=== PATIENT | male | born 1985 | race Caucasian/White ===

== ENCOUNTER 2017-03-15 16:25 | Emergency (ER) | payer BC ==
[2017-03-15] MEDS ORDERED: ASPIRIN 81 MG CHEW PO STA (17:04)
--- NOTE | 2017-03-15 17:07 | ED ---
General Adult HPI - General Chief complaint: Chest Pain Stated complaint: Chest Pain Time Seen by Provider: 03/15/17 16:57 Source: patient, RN notes reviewed Mode of arrival: ambulatory Limitations: no limitations - History of Present Illness Initial comments: Patient's a 31-year-old male who presents emergency room today with a chief complaint of chest pain that began approximately 2 hours ago. He does admit that he was at work when he began feeling some dull chest pain both left and right side that seemed to radiate Center. Patient does admit that it lasted approximately 10 minutes. Patient states that pain then improved. States approximately 20 minutes later pain return. States he feels more of a sharp type pain radiating on the right side of his chest. Patient denies any other associated symptoms. States pain has been coming and going. He states at this time he is currently pain-free but while in the waiting room had 3 episodes of this chest pain. Patient states never had pain like this in the past. He does admit to a family history of cardiac disease. States father has had bypass surgery. States grandfather had heart attack at age 45. Patient denies any recent fever, chills, shortness of breath, back pain, abdominal pain, nausea or vomiting, numbness or tingling, dysuria or hematuria, constipation or diarrhea, headaches or visual changes, or any other complaints. - Related Data Home Medications Medication Instructions Recorded Confirmed Colchicine [Colcrys] 0.6 mg PO DIRECTED PRN 01/03/16 03/15/17 Hydrochlorothiazide 25 mg PO DAILY 01/03/16 03/15/17 Indomethacin [Indocin] 50 mg PO BID PRN 01/03/16 03/15/17 Fluticasone/Salmeterol [Advair 1 inhalation PO RT-BID 03/15/17 03/15/17 250-50 Diskus] Allergies Allergy/AdvReac Type Severity Reaction Status Date / Time morphine Allergy Rash/Hives Verified 03/15/17 17:22 Review of Systems ROS Statement: Those systems with pertinent positive or pertinent negative responses have been documented in the HPI. ROS Other: All systems not noted in ROS Statement are negative. 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), History of Any Multi-Drug Resistant Organisms: None Reported Past Surgical History: Hernia Repair Additional Past Surgical History / Comment(s): left inguinal hernia x2 Past Anesthesia/Blood Transfusion Reactions: No Reported Reaction Past Psychological History: No Psychological Hx Reported Smoking Status: Never smoker Past Alcohol Use History: None Reported Past Drug Use History: None Reported - Past Family History Mother Family Medical History: No Reported History General Exam - General Exam Comments Initial Comments: General: The patient is awake and alert, in no distress, and does not appear acutely ill. Eye: Pupils are equal, round and reactive to light, extra-ocular movements are intact. No nystagmus. There is normal conjunctiva bilaterally. No signs of icterus. Ears, nose, mouth and throat: There are moist mucous membranes and no oral lesions. Neck: The neck is supple, there is no tenderness or JVD. Cardiovascular: There is a regular rate and rhythm. No murmur, rub or gallop is appreciated. Respiratory: Lungs are clear to auscultation, respirations are non-labored, breath sounds are equal. No wheezes, stridor, rales, or rhonchi. Gastrointestinal: Soft, non-distended, non-tender abdomen without masses or organomegaly noted. There is no rebound or guarding present. No CVA tenderness. Bowel sounds are unremarkable. Musculoskeletal: Normal ROM, no tenderness. Strength 5/5. Sensation intact. Pulses equal bilaterally 2+. Neurological: A&O x 3. CN II-XII intact, There are no obvious motor or sensory deficits. Coordination appears grossly intact. Speech is normal. Skin: Skin is warm and dry and no rashes or lesions are noted. Psychiatric: Cooperative, appropriate mood & affect, normal judgment. Limitations: no limitations Course Vital Signs 03/15/17 03/15/17 03/15/17 16:26 17:22 18:08 Temperature 97.8 F Pulse Rate 74 89 69 Respiratory 18 18 16 Rate Blood Pressure 141/93 140/95 138/92 O2 Sat by Pulse 98 99 99 Oximetry 03/15/17 03/15/17 19:00 19:45 Temperature 98 F Pulse Rate 70 67 Respiratory 18 16 Rate Blood Pressure 141/90 147/92 O2 Sat by Pulse 99 98 Oximetry EKG Findings - EKG Comments: EKG Findings:: EKG performed at 1635: A 12-lead EKG was performed and interpreted by me as showing the following: Rate is 71, and rhythm is normal sinus. There are normal QRS complexes and normal R-wave progression. ST segments have no elevation or depression, and NV segments appear normal. Medical Decision Making - Medical Decision Making Patient reexamined at this time shows no signs of distress. Repeat troponin was negative. Patient's EKG shows normal sinus rhythm. States she's not had any chest pain in the last 2 hours that he's been here. States is resting comfortably at this time. Case was discussed with attending physician . Patient will be discharged home advised to follow up with family doctor tomorrow. Advised no physical activity until follow-up appointment. Advised return if any symptoms increase or worsen or for any other concerns. - Lab Data Result diagrams: 03/15/17 17:20 03/15/17 17:20 Lab Results 03/15/17 03/15/17 03/15/17 Range/Units 17:20 17:20 17:20 WBC 9.1 (3.8-10.6) k/uL RBC 6.09 H (4.30-5.90) m/uL Hgb 16.4 (13.0-17.5) gm/dL Hct 49.6 (39.0-53.0) % MCV 81.4 (80.0-100.0) fL MCH 27.0 (25.0-35.0) pg MCHC 33.1 (31.0-37.0) g/dL RDW 13.3 (11.5-15.5) % Plt Count 346 (150-450) k/uL Neutrophils % 63 % Lymphocytes % 24 % Monocytes % 8 % Eosinophils % 2 % Basophils % 1 % Neutrophils # 5.8 (1.3-7.7) k/uL Lymphocytes # 2.2 (1.0-4.8) k/uL Monocytes # 0.7 (0-1.0) k/uL Eosinophils # 0.2 (0-0.7) k/uL Basophils # 0.1 (0-0.2) k/uL PT (9.0-12.0) sec INR (<1.1) APTT (22.0-30.0) sec D-Dimer (<0.60) mg/L FEU Sodium 137 (137-145) mmol/L Potassium 3.5 (3.5-5.1) mmol/L Chloride 98 (98-107) mmol/L Carbon Dioxide 26 (22-30) mmol/L Anion Gap 13 mmol/L BUN 15 (9-20) mg/dL Creatinine 0.86 (0.66-1.25) mg/dL Est GFR (MDRD) Af Amer >60 (>60 ml/min/1.73 sqM) Est GFR (MDRD) Non-Af >60 (>60 ml/min/1.73 sqM) Glucose 94 (74-99) mg/dL Calcium 10.0 (8.4-10.2) mg/dL Magnesium 1.8 (1.6-2.3) mg/dL Total Bilirubin 1.8 H (0.2-1.3) mg/dL AST 28 (17-59) U/L ALT 54 (21-72) U/L Alkaline Phosphatase 59 (38-126) U/L Total Creatine Kinase 125 (55-170) U/L CK-MB (CK-2) 3.5 H* (0.0-2.4) ng/mL CK-MB (CK-2) Rel Index 2.8 Troponin I <0.012 (0.000-0.034) ng/mL Total Protein 8.2 (6.3-8.2) g/dL Albumin 4.9 (3.5-5.0) g/dL Lipase (23-300) U/L 03/15/17 03/15/17 03/15/17 Range/Units 17:20 17:20 17:20 WBC (3.8-10.6) k/uL RBC (4.30-5.90) m/uL Hgb (13.0-17.5) gm/dL Hct (39.0-53.0) % MCV (80.0-100.0) fL MCH (25.0-35.0) pg MCHC (31.0-37.0) g/dL RDW (11.5-15.5) % Plt Count (150-450) k/uL Neutrophils % % Lymphocytes % % Monocytes % % Eosinophils % % Basophils % % Neutrophils # (1.3-7.7) k/uL Lymphocytes # (1.0-4.8) k/uL Monocytes # (0-1.0) k/uL Eosinophils # (0-0.7) k/uL Basophils # (0-0.2) k/uL PT 11.4 (9.0-12.0) sec INR 1.1 (<1.1) APTT 24.7 (22.0-30.0) sec D-Dimer <0.17 (<0.60) mg/L FEU Sodium (137-145) mmol/L Potassium (3.5-5.1) mmol/L Chloride (98-107) mmol/L Carbon Dioxide (22-30) mmol/L Anion Gap mmol/L BUN (9-20) mg/dL Creatinine (0.66-1.25) mg/dL Est GFR (MDRD) Af Amer (>60 ml/min/1.73 sqM) Est GFR (MDRD) Non-Af (>60 ml/min/1.73 sqM) Glucose (74-99) mg/dL Calcium (8.4-10.2) mg/dL Magnesium (1.6-2.3) mg/dL Total Bilirubin (0.2-1.3) mg/dL AST (17-59) U/L ALT (21-72) U/L Alkaline Phosphatase (38-126) U/L Total Creatine Kinase (55-170) U/L CK-MB (CK-2) (0.0-2.4) ng/mL CK-MB (CK-2) Rel Index Troponin I (0.000-0.034) ng/mL Total Protein (6.3-8.2) g/dL Albumin (3.5-5.0) g/dL Lipase 152 (23-300) U/L 03/15/17 Range/Units 18:50 WBC (3.8-10.6) k/uL RBC (4.30-5.90) m/uL Hgb (13.0-17.5) gm/dL Hct (39.0-53.0) % MCV (80.0-100.0) fL MCH (25.0-35.0) pg MCHC (31.0-37.0) g/dL RDW (11.5-15.5) % Plt Count (150-450) k/uL Neutrophils % % Lymphocytes % % Monocytes % % Eosinophils % % Basophils % % Neutrophils # (1.3-7.7) k/uL Lymphocytes # (1.0-4.8) k/uL Monocytes # (0-1.0) k/uL Eosinophils # (0-0.7) k/uL Basophils # (0-0.2) k/uL PT (9.0-12.0) sec INR (<1.1) APTT (22.0-30.0) sec D-Dimer (<0.60) mg/L FEU Sodium (137-145) mmol/L Potassium (3.5-5.1) mmol/L Chloride (98-107) mmol/L Carbon Dioxide (22-30) mmol/L Anion Gap mmol/L BUN (9-20) mg/dL Creatinine (0.66-1.25) mg/dL Est GFR (MDRD) Af Amer (>60 ml/min/1.73 sqM) Est GFR (MDRD) Non-Af (>60 ml/min/1.73 sqM) Glucose (74-99) mg/dL Calcium (8.4-10.2) mg/dL Magnesium (1.6-2.3) mg/dL Total Bilirubin (0.2-1.3) mg/dL AST (17-59) U/L ALT (21-72) U/L Alkaline Phosphatase (38-126) U/L Total Creatine Kinase (55-170) U/L CK-MB (CK-2) (0.0-2.4) ng/mL CK-MB (CK-2) Rel Index Troponin I <0.012 (0.000-0.034) ng/mL Total Protein (6.3-8.2) g/dL Albumin (3.5-5.0) g/dL Lipase (23-300) U/L Disposition Clinical Impression: Chest pain Disposition: HOME SELF-CARE Condition: Good Instructions: Chest Pain (ED) Additional Instructions: Please follow-up family doctor tomorrow. Please refrain from physical activity until follow-up appointment. Please return to emergency room if symptoms increase or worsen or for any other concerns. Time of Disposition: 19:48
[2017-03-15 17:30] LABS: Basophils # (A) 0.1 k/uL (0-0.2); Basophils % (A) 1 %; CH 28.2; CHCM 34.8; Eosinophils # (A) 0.2 k/uL (0-0.7); Eosinophils % (A) 2 %; HCT 49.6 % (39.0-53.0); HDW 2.47; HGB 16.4 gm/dL (13.0-17.5); Luc # (Auto) 0.14; Luc % (Auto) 2; Lymphocytes # (A) 2.2 k/uL (1.0-4.8); Lymphocytes % (A) 24 %; MCHC 33.1 g/dL (31.0-37.0); MCV 81.4 fL (80.0-100.0); Monocytes # (A) 0.7 k/uL (0-1.0); Monocytes % (A) 8 %; Neutrophils # (A) 5.8 k/uL (1.3-7.7); Neutrophils % (A) 63 %; RBC 6.09 m/uL (4.30-5.90); RDW 13.3 % (11.5-15.5); WBC 9.1 k/uL (3.8-10.6); WBC (Perox) 8.93
[2017-03-15 17:40] LABS: ALT 54 U/L (21-72); AST 28 U/L (17-59); Alkaline Phosphatase 59 U/L (38-126); Anion Gap 13 mmol/L; Blood Urea Nitrogen 15 mg/dL (9-20); Carbon Dioxide 26 mmol/L (22-30); Chloride 98 mmol/L (98-107); Glucose 94 mg/dL (74-99); Magnesium 1.8 mg/dL (1.6-2.3); Non-African American GFR(MDRD) >60 (>60 ml/min/1.73 sqM); Potassium 3.5 mmol/L (3.5-5.1); Sodium 137 mmol/L (137-145); Total Bilirubin 1.8 mg/dL (0.2-1.3); Total Protein 8.2 g/dL (6.3-8.2)
[2017-03-15 17:41] LABS: INR 1.1 (<1.1); Partial Thromboplastin Time 24.7 sec (22.0-30.0); Prothrombin Time 11.4 sec (9.0-12.0)
--- NOTE | 2017-03-15 17:45 | XR ---
EXAMINATION TYPE: XR chest 2V DATE OF EXAM: 03/15/2017 5:40 PM COMPARISON: NONE HISTORY: Chest pain. TECHNIQUE: Frontal and lateral views of the chest are obtained. FINDINGS: There is no focal air space opacity, pleural effusion, or pneumothorax seen. The cardiac silhouette size is within normal limits. Cardiac apex is indistinct with slightly more prominent rig ht heart border. Note is made of left-sided arch and stomach bubble. The osseous structures are intac t. IMPRESSION: No acute pulmonary process. Cannot exclude dextrocardia versus prominent right atrium or right heart.
[2017-03-15 17:57] LABS: Creatine Kinase 125 U/L (55-170)
[2017-03-15 18:10] LABS: Creatine Kinase MB 3.5 ng/mL (0.0-2.4); Troponin I <0.012 ng/mL (0.000-0.034)
[2017-03-15 19:04] VITALS: TEMP 98
[2017-03-15 19:46] VITALS: BP 147/92; PULSE 67; RESP 16
== END 2017-03-15 20:03 | disposition home or self-care (01) ==
LOC: EC 16:25
DX: R07.9 Chest pain, unspecified (principal); I10 Essential (primary) hypertension; Z79.51 Long term (current) use of inhaled steroids; Z79.899 Other long term (current) drug therapy; Z88.5 Allergy status to narcotic agent
CPT/HCPCS: 36415; 71020; 80053; 82550; 82553; 83690; 83735; 84484; 85025; 85379; 85610; 85730; 93005; 99285

== ENCOUNTER 2017-07-15 16:33 | Observation (INO) | payer BC ==
[2017-07-15] MEDS ORDERED: SODIUM CHLORIDE 0.9% 1,000 ML IV STA (16:59)
--- NOTE | 2017-07-15 17:06 | ED ---
General Adult HPI - General Chief complaint: Arrhythmia/Palpitations Stated complaint: Dizzy, Palpitations Time Seen by Provider: 07/15/17 16:42 Source: patient, RN notes reviewed, old records reviewed Mode of arrival: wheelchair Limitations: no limitations - History of Present Illness Initial comments: This is a 31-year-old male here for chest pain. Patient has sharp anterior chest pain occasional chest pain rating to right-sided jaw. Mild shortness of breath. Dizziness also a left-sided today. No other significant symptoms, no change in medications. Note cough or congestion. No recent travel history or sick contacts. No recent prior cardiac observation - Related Data Home Medications Medication Instructions Recorded Confirmed Colchicine [Colcrys] 0.6 mg PO DIRECTED PRN 01/03/16 07/15/17 Indomethacin [Indocin] 50 mg PO BID PRN 01/03/16 07/15/17 Cimetidine [Tagamet] 300 mg PO BID 07/15/17 07/15/17 Hydrochlorothiazide 25 mg PO DAILY 07/15/17 07/15/17 Allergies Allergy/AdvReac Type Severity Reaction Status Date / Time morphine Allergy Rash/Hives Verified 07/15/17 16:37 Review of Systems ROS Statement: Those systems with pertinent positive or pertinent negative responses have been documented in the HPI. ROS Other: All systems not noted in ROS Statement are negative. 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), History of Any Multi-Drug Resistant Organisms: None Reported Past Surgical History: Hernia Repair Additional Past Surgical History / Comment(s): left inguinal hernia x2 Past Anesthesia/Blood Transfusion Reactions: No Reported Reaction Past Psychological History: Panic Disorder Smoking Status: Never smoker Past Alcohol Use History: Occasional Past Drug Use History: None Reported - Past Family History Mother Family Medical History: No Reported History General Exam Limitations: no limitations General appearance: alert, in no apparent distress Head exam: Present: atraumatic, normocephalic, normal inspection Eye exam: Present: normal appearance, PERRL, EOMI. Absent: scleral icterus, conjunctival injection, periorbital swelling ENT exam: Present: normal exam, mucous membranes moist Neck exam: Present: normal inspection. Absent: tenderness, meningismus, lymphadenopathy Respiratory exam: Present: normal lung sounds bilaterally. Absent: respiratory distress, wheezes, rales, rhonchi, stridor Cardiovascular Exam: Present: regular rate, normal rhythm, normal heart sounds. Absent: systolic murmur, diastolic murmur, rubs, gallop, clicks GI/Abdominal exam: Present: soft, normal bowel sounds. Absent: distended, tenderness, guarding, rebound, rigid Extremities exam: Present: normal inspection, full ROM, normal capillary refill. Absent: tenderness, pedal edema, joint swelling, calf tenderness Back exam: Present: normal inspection Neurological exam: Present: alert, oriented X3, CN II-XII intact Psychiatric exam: Present: normal affect, normal mood Skin exam: Present: warm, dry, intact, normal color. Absent: rash Course Vital Signs 07/15/17 07/15/17 07/15/17 16:34 17:55 18:45 Temperature 97.4 F L 98.0 F Pulse Rate 85 77 86 Respiratory 18 17 Rate Blood Pressure 152/107 136/89 136/90 O2 Sat by Pulse 100 100 100 Oximetry - Reevaluation(s) Reevaluation #1: 07/15/17 18:51 Patient has no change in symptoms at this time EKG Findings - EKG Comments: EKG Findings:: EKG shows normal sinus rhythm at 78, OK 1:30, QRS 46, QTC 449 Medical Decision Making - Medical Decision Making 28 female here for evaluation of heart disease. Chest pain. Dizziness. Patient admitted for cardiac observation, history of tachycardia and history of 5 blood pressure. - Lab Data Result diagrams: 07/15/17 17:10 07/15/17 17:10 Lab Results 07/15/17 07/15/17 07/15/17 Range/Units 17:10 17:10 17:10 WBC 8.0 (3.8-10.6) k/uL RBC 5.79 (4.30-5.90) m/uL Hgb 15.8 (13.0-17.5) gm/dL Hct 47.4 (39.0-53.0) % MCV 81.8 (80.0-100.0) fL MCH 27.4 (25.0-35.0) pg MCHC 33.4 (31.0-37.0) g/dL RDW 15.1 (11.5-15.5) % Plt Count 311 (150-450) k/uL Neutrophils % 71 % Lymphocytes % 18 % Monocytes % 7 % Eosinophils % 2 % Basophils % 1 % Neutrophils # 5.7 (1.3-7.7) k/uL Lymphocytes # 1.5 (1.0-4.8) k/uL Monocytes # 0.5 (0-1.0) k/uL Eosinophils # 0.2 (0-0.7) k/uL Basophils # 0.1 (0-0.2) k/uL PT (9.0-12.0) sec INR (<1.2) APTT (22.0-30.0) sec D-Dimer (<0.60) mg/L FEU Sodium 141 (137-145) mmol/L Potassium 3.6 (3.5-5.1) mmol/L Chloride 104 (98-107) mmol/L Carbon Dioxide 23 (22-30) mmol/L Anion Gap 14 mmol/L BUN 10 (9-20) mg/dL Creatinine 1.00 (0.66-1.25) mg/dL Est GFR (MDRD) Af Amer >60 (>60 ml/min/1.73 sqM) Est GFR (MDRD) Non-Af >60 (>60 ml/min/1.73 sqM) Glucose 89 (74-99) mg/dL Calcium 9.9 (8.4-10.2) mg/dL Phosphorus 4.2 (2.5-4.5) mg/dL Magnesium 1.9 (1.6-2.3) mg/dL Total Bilirubin 1.5 H (0.2-1.3) mg/dL AST 45 (17-59) U/L ALT 86 H (21-72) U/L Alkaline Phosphatase 68 (38-126) U/L Total Creatine Kinase 278 H (55-170) U/L CK-MB (CK-2) 2.8 H* (0.0-2.4) ng/mL CK-MB (CK-2) Rel Index 1.0 Troponin I <0.012 (0.000-0.034) ng/mL Total Protein 7.5 (6.3-8.2) g/dL Albumin 4.8 (3.5-5.0) g/dL TSH 1.930 (0.465-4.680) mIU/L 07/15/17 Range/Units 17:10 WBC (3.8-10.6) k/uL RBC (4.30-5.90) m/uL Hgb (13.0-17.5) gm/dL Hct (39.0-53.0) % MCV (80.0-100.0) fL MCH (25.0-35.0) pg MCHC (31.0-37.0) g/dL RDW (11.5-15.5) % Plt Count (150-450) k/uL Neutrophils % % Lymphocytes % % Monocytes % % Eosinophils % % Basophils % % Neutrophils # (1.3-7.7) k/uL Lymphocytes # (1.0-4.8) k/uL Monocytes # (0-1.0) k/uL Eosinophils # (0-0.7) k/uL Basophils # (0-0.2) k/uL PT 10.6 (9.0-12.0) sec INR 1.0 (<1.2) APTT 23.8 (22.0-30.0) sec D-Dimer <0.17 (<0.60) mg/L FEU Sodium (137-145) mmol/L Potassium (3.5-5.1) mmol/L Chloride (98-107) mmol/L Carbon Dioxide (22-30) mmol/L Anion Gap mmol/L BUN (9-20) mg/dL Creatinine (0.66-1.25) mg/dL Est GFR (MDRD) Af Amer (>60 ml/min/1.73 sqM) Est GFR (MDRD) Non-Af (>60 ml/min/1.73 sqM) Glucose (74-99) mg/dL Calcium (8.4-10.2) mg/dL Phosphorus (2.5-4.5) mg/dL Magnesium (1.6-2.3) mg/dL Total Bilirubin (0.2-1.3) mg/dL AST (17-59) U/L ALT (21-72) U/L Alkaline Phosphatase (38-126) U/L Total Creatine Kinase (55-170) U/L CK-MB (CK-2) (0.0-2.4) ng/mL CK-MB (CK-2) Rel Index Troponin I (0.000-0.034) ng/mL Total Protein (6.3-8.2) g/dL Albumin (3.5-5.0) g/dL TSH (0.465-4.680) mIU/L - Radiology Data Radiology results: report reviewed (Chest x-ray is negative for acute disease), image reviewed Critical Care Time Critical Care Time: Yes Total Critical Care Time: 31 Disposition Clinical Impression: Chest pain Disposition: ADMITTED IP TO THIS HOSP Condition: Good Referrals: Natalio Ojeda MD [Primary Care Provider] - 1-2 days
[2017-07-15 17:20] LABS: Basophils # (A) 0.1 k/uL (0-0.2); Basophils % (A) 1 %; CH 28.9; CHCM 35.4; Eosinophils # (A) 0.2 k/uL (0-0.7); Eosinophils % (A) 2 %; HCT 47.4 % (39.0-53.0); HDW 2.53; HGB 15.8 gm/dL (13.0-17.5); Luc # (Auto) 0.13; Luc % (Auto) 2; Lymphocytes # (A) 1.5 k/uL (1.0-4.8); Lymphocytes % (A) 18 %; MCH 27.4 pg (25.0-35.0); MCHC 33.4 g/dL (31.0-37.0); MCV 81.8 fL (80.0-100.0); Mean Platelet Volume 7.8; Monocytes # (A) 0.5 k/uL (0-1.0); Monocytes % (A) 7 %; Neutrophils # (A) 5.7 k/uL (1.3-7.7); Neutrophils % (A) 71 %; RBC 5.79 m/uL (4.30-5.90); RDW 15.1 % (11.5-15.5); WBC (Perox) 7.44
[2017-07-15 17:29] LABS: ALT 86 U/L (21-72); AST 45 U/L (17-59); Alkaline Phosphatase 68 U/L (38-126); Anion Gap 14 mmol/L; Blood Urea Nitrogen 10 mg/dL (9-20); Calcium 9.9 mg/dL (8.4-10.2); Carbon Dioxide 23 mmol/L (22-30); Chloride 104 mmol/L (98-107); Glucose 89 mg/dL (74-99); Magnesium 1.9 mg/dL (1.6-2.3); Non-African American GFR(MDRD) >60 (>60 ml/min/1.73 sqM); Phosphorous 4.2 mg/dL (2.5-4.5); Potassium 3.6 mmol/L (3.5-5.1); Sodium 141 mmol/L (137-145); Total Bilirubin 1.5 mg/dL (0.2-1.3); Total Protein 7.5 g/dL (6.3-8.2)
--- NOTE | 2017-07-15 17:33 | XR ---
EXAMINATION TYPE: XR chest 2V DATE OF EXAM: 07/15/2017 CLINICAL HISTORY: Pain TECHNIQUE: Frontal and lateral views of the chest are obtained. COMPARISON: 03/15/2017 FINDINGS: There is no focal air space opacity, pleural effusion, or pneumothorax seen. Suspect dextr ocardia. The osseous structures are intact. IMPRESSION: No acute cardiopulmonary process.
[2017-07-15 17:37] LABS: Partial Thromboplastin Time 23.8 sec (22.0-30.0); Prothrombin Time 10.6 sec (9.0-12.0)
[2017-07-15 17:40] LABS: Creatine Kinase 278 U/L (55-170)
[2017-07-15 17:53] LABS: Troponin I <0.012 ng/mL (0.000-0.034)
[2017-07-15 17:54] LABS: Creatine Kinase MB 2.8 ng/mL (0.0-2.4)
[2017-07-15] MEDS ORDERED: MORPHINE SULFATE 4 MG/ML SYRINGE IV PRN (18:48)
[2017-07-15] MEDS ORDERED: HEPARIN SODIUM,PORCINE 5,000 UNIT/ML 1 ML VIAL IV PRN (18:48)
[2017-07-15] MEDS ORDERED: HEPARIN SODIUM,PORCINE 5,000 UNIT/ML 1 ML VIAL IV ONE (18:48)
[2017-07-15] MEDS ORDERED: NITROGLYCERIN SL TABS 0.4 MG TAB SUBLINGUAL PRN (18:48)
[2017-07-15] MEDS ORDERED: ASPIRIN 81 MG PO STA (18:48)
[2017-07-15] MEDS ORDERED: HEPARIN SODIUM,PORCINE/D5W PMX 25,000 UNIT in DEXTROSE/WATER 1 500ML.BAG IV SCH (19:00)
[2017-07-15 21:16] VITALS: BMI 30.5
[2017-07-16 00:43] LABS: Creatine Kinase 184 U/L (55-170)
[2017-07-16 00:57] LABS: Troponin I <0.012 ng/mL (0.000-0.034)
[2017-07-16 06:12] LABS: Mean Platelet Volume 7.7
[2017-07-16 06:29] LABS: Cholesterol 195 mg/dL (<200); HDL Cholesterol 29 mg/dL (40-60)
[2017-07-16 06:38] LABS: Creatine Kinase 142 U/L (55-170)
[2017-07-16 06:51] LABS: Creatine Kinase MB 1.6 ng/mL (0.0-2.4); Troponin I <0.012 ng/mL (0.000-0.034)
--- NOTE | 2017-07-16 08:41 | P.HPIM ---
History of Present Illness H&P Date: 07/16/17 Chief Complaint: Dizziness with chest pain. This is a history of physical 31-year-old white male essentially admitted for recurrent chest pain with palpitations. Several days ago, he had similar symptoms but now significant pain. Yesterday, he states dizziness and instability related to chest pain had no nausea or diaphoresis was stated. However the chest pain was becoming more evident and stronger. He has an underlying history of hypertension which was elevated during the last several days. He is a nonsmoker. He denies any significant illicit substance abuse. But because of his recurrent symptomatology, he was appropriately evaluated to rule out myocardial infarction. Cardiac enzymes of troponin are negative at this time. He had slight elevation of CK-MB relative index was unremarkable. We'll discontinue heparin and await cardiology consultation. He is agreeable to stress testing today. 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), History of Any Multi-Drug Resistant Organisms: None Reported Past Surgical History: Hernia Repair Additional Past Surgical History / Comment(s): left inguinal hernia x2 Past Anesthesia/Blood Transfusion Reactions: No Reported Reaction Past Psychological History: Panic Disorder Additional Psychological History / Comment(s): once in high school Smoking Status: Never smoker Past Alcohol Use History: Occasional Past Drug Use History: None Reported - Past Family History Mother Family Medical History: No Reported History Medications and Allergies Home Medications Medication Instructions Recorded Confirmed Type Colchicine [Colcrys] 0.6 mg PO DIRECTED PRN 01/03/16 07/15/17 History Indomethacin [Indocin] 50 mg PO BID PRN 01/03/16 07/15/17 History Cimetidine [Tagamet] 300 mg PO BID 07/15/17 07/15/17 History Hydrochlorothiazide 25 mg PO DAILY 07/15/17 07/15/17 History Allergies Allergy/AdvReac Type Severity Reaction Status Date / Time morphine Allergy Rash/Hives Verified 07/15/17 16:37 Physical Exam Vitals: Vital Signs Temp Pulse Pulse Resp BP BP Pulse Ox 07/16/17 07:23 97.8 F 67 16 140/86 97 07/16/17 04:22 98.1 F 65 18 102/74 99 07/16/17 03:56 60 18 07/16/17 02:36 68 18 07/15/17 23:58 98.1 F 65 18 134/80 98 07/15/17 21:00 67 18 07/15/17 20:22 98.1 F 68 18 140/99 96 07/15/17 19:56 98.4 F 77 16 129/92 99 07/15/17 18:45 98.0 F 86 17 136/90 100 07/15/17 17:55 77 17 136/89 100 07/15/17 16:34 97.4 F L 85 18 152/107 100 Intake and Output 07/15/17 07/16/17 07/16/17 22:59 06:59 14:59 Intake Total 135.864 Balance 135.864 Intake: Intake, IV Titration 135.864 Amount Heparin Sodium,Porcine/ 135.864 D5w Pmx 25,000 unit In Dextrose/Water 1 500ml. bag @ 11.3 UNITS/KG/HR 19 .98 mls/hr IV .Q24H [facility] Rx#:[id number] Other: Voiding Method Toilet Toilet Toilet # Voids 1 Weight 88.451 kg 88.451 kg - Constitutional General appearance: no acute distress - EENT Eyes: EOMI - Neck Neck: no lymphadenopathy - Respiratory Respiratory: bilateral: CTA - Cardiovascular Rhythm: regular - Gastrointestinal General gastrointestinal: soft, no tenderness - Integumentary Integumentary: no cellulitis - Neurologic Neurologic: CNII-XII intact - Psychiatric Psychiatric: A&O x's 3, appropriate affect Results CBC & Chem 7: 07/16/17 05:40 07/15/17 17:10 Labs: Abnormal Lab Results - Last 24 Hours (Table) 07/15/17 07/15/17 07/16/17 Range/Units 17:10 17:10 00:15 Total Bilirubin 1.5 H (0.2-1.3) mg/dL ALT 86 H (21-72) U/L Total Creatine Kinase 278 H 184 H (55-170) U/L CK-MB (CK-2) 2.8 H* (0.0-2.4) ng/mL Triglycerides (<150) mg/dL LDL Cholesterol, Calc (0-99) mg/dL HDL Cholesterol (40-60) mg/dL 07/16/17 Range/Units 05:40 Total Bilirubin (0.2-1.3) mg/dL ALT (21-72) U/L Total Creatine Kinase (55-170) U/L CK-MB (CK-2) (0.0-2.4) ng/mL Triglycerides 253 H (<150) mg/dL LDL Cholesterol, Calc 115 H (0-99) mg/dL HDL Cholesterol 29 L (40-60) mg/dL Assessment and Plan (1) Hypertension Status: Acute (2) Gout Status: Acute (3) Chest pain Status: Acute Plan: Await cardiology input. Stress echo versus stress thallium to be considered. We'll continue to follow closely. DC heparin at this time.
[2017-07-16] MEDS ORDERED: ASPIRIN 325 MG TAB PO SCH (09:00)
[2017-07-16] MEDS ORDERED: ATORVASTATIN 80 MG TAB PO SCH (09:00)
--- NOTE | 2017-07-16 12:07 | ECHOS ---
DATE OF SERVICE: 07/16/2017 TYPE OF REPORT: Stress Echocardiogram. INDICATION: Chest pain. BASELINE HEART RATE: 82 BASELINE BLOOD PRESSURE: 130/80 MAXIMUM HEART RATE: 161 MAXIMUM BLOOD PRESSURE: 194/94 85% MPHR: 159 100% MPHR: 187 METS: 10.1 MAX STAGE REACHED: III TOTAL EXERCISE TIME: 8:30 Mr. Marvin is a 31-year-old gentleman with history of chest pain and shortness of breath and hypertension being evaluated for cardiac status. STRESS DATA: Baseline EKG showed sinus rhythm with normal NC interval and QRS duration. Blood pressure at rest is 130/80 with a pulse rate of 82. Patient has a history of situs inversus and dextrocardia. Patient showed a maximum heart rate of 161 with a blood pressure of 194/94. Patient became short of breath. EKGs taken during and after the exercise did not reveal any significant changes from the baseline. Baseline echo images are suboptimal because of technical difficulties as well as dextrocardia. Exercise echo images also suboptimal, but grossly there does not seem to be any definite segmental wall motion defects. The stress echo was done with Definity. FINAL IMPRESSION: 1. Negative stress test. 2. Patient became short of breath. 3. Probably normal stress echo though there are some technical difficulties because of dextrocardia. DANIELD
[2017-07-16] MEDS ORDERED: HYDROCHLOROTHIAZIDE 25 MG TAB PO SCH (15:00)
[2017-07-16 17:08] VITALS: BP 145/87; PULSE 83; RESP 15; TEMP 99.4
[2017-07-16] MEDS ORDERED: FAMOTIDINE 20 MG TAB PO SCH (21:00)
== END 2017-07-16 18:10 | disposition home or self-care (01) ==
LOC: EC 16:33 → 3OBS 18:48
PROVIDERS: ADMIT Family Medicine; ATTEND Family Medicine
DX: R07.9 Chest pain, unspecified (principal); R00.2 Palpitations; I10 Essential (primary) hypertension; M10.9 Gout, unspecified; Q24.0 Dextrocardia; R06.02 Shortness of breath; R42 Dizziness and giddiness; K21.9 Gastro-esophageal reflux disease without esophagitis; R74.8 Abnormal levels of other serum enzymes; Z88.5 Allergy status to narcotic agent; Z79.899 Other long term (current) drug therapy; Z86.79 Personal history of other diseases of the circulatory system
CPT/HCPCS: 99291 ×2; 96365 ×2; 96376 ×3; 96361 ×2; 96366 ×2; 36415; 93005; 93350; 93017; 85379; 80061; 80053; 82550 ×2; 82553 ×2; 83735; 84100; 84443; 84484 ×2; 85025; 85049; 85610; 85730 ×2; 71020; G0378 ×2; J1644 ×3; Q9957

== ENCOUNTER → 2017-12-10 | Outpatient (CLI) | payer BC ==
--- NOTE | 2017-12-10 15:51 | XR ---
EXAMINATION TYPE: XR chest 2V DATE OF EXAM: 12/10/2017 COMPARISON: 07/15/2017 HISTORY: 32-year-old male cough, asthma TECHNIQUE: Frontal and lateral views FINDINGS: Possible dextrocardia redemonstrated. Strandy atelectasis lower lungs. No consolidation or pleural ef fusion. IMPRESSION: 1. Again, unable to exclude dextrocardia. 2. No acute cardiopulmonary process.
== END | disposition home or self-care (01) ==
LOC: RADXRMAIN 15:38
PROVIDERS: ATTEND Internal Medicine Sleep Medicine
DX: J45.909 Unspecified asthma, uncomplicated (principal)
CPT/HCPCS: 71046

== ENCOUNTER → 2018-09-28 | Outpatient (CLI) | payer BC ==
--- NOTE | 2018-09-28 08:25 | US ---
EXAMINATION TYPE: US abdomen complete DATE OF EXAM: 09/28/2018 COMPARISON: NONE CLINICAL HISTORY: Rt upper quadrant pain R10.11. EXAM MEASUREMENTS: Liver Length: 19.1 cm Gallbladder Wall: 0.4 cm CBD: 0.4 cm Spleen: 11.1 cm Right Kidney: 10.3 x 4.6 x 5.2 cm Left Kidney: 10.6 x 5.4 4.7 cm Pancreas: Obscured by bowel gas Liver: Heterogeneous, enlarged Gallbladder: Stone visualized measuring 2.8 cm, gallbladder wall appears thickened. Some possible sl udge visualized Evidence for sonographic Barrera's sign: Yes CBD: wnl as visualized, distal portion obscured by bowel gas Spleen: wnl Right Kidney: No hydronephrosis or masses seen Left Kidney: No hydronephrosis or masses seen Upper IVC: wnl Abd Aorta: wnl as visualized, partially obscured by bowel gas The liver is heterogeneous. The intrahepatic portion of the IVC and proximal abdominal aorta are with in normal limits. Common bile duct is unremarkable. The visualized portions of the pancreas are ho mogenous. The spleen is unremarkable. Kidneys are symmetric and free of hydronephrosis. No renal l esions are seen. IMPRESSION: 1. Cholelithiasis with gallbladder wall thickening. 2. Hepatomegaly with underlying steatosis.
== END | disposition home or self-care (01) ==
LOC: RADUSWWP 07:35
PROVIDERS: ATTEND Family Medicine
DX: K80.20 Calculus of gallbladder without cholecystitis without obstruction (principal); K76.0 Fatty (change of) liver, not elsewhere classified
CPT/HCPCS: 76700

== ENCOUNTER 2018-11-04 10:00 | Emergency (ER) | payer BC ==
[2018-11-04 10:05] VITALS: RESP 18
[2018-11-04] MEDS ORDERED: KETOROLAC 30 MG/ML 1 ML VIAL IVP STA (10:57)
[2018-11-04] MEDS ORDERED: METOCLOPRAMIDE 5 MG/ML 2 ML VIAL IVP STA (10:57)
--- NOTE | 2018-11-04 11:00 | ED ---
General Adult HPI - General Chief complaint: Abdominal Pain Stated complaint: Abdominal pain Time Seen by Provider: 11/04/18 10:19 Source: patient, RN notes reviewed Mode of arrival: ambulatory Limitations: no limitations - History of Present Illness Initial comments: Patient is a pleasant 33-year-old male presenting to the emergency abdominal pain. Patient has had symptoms over a couple of years. Patient was diagnosed with gallstone a month or so ago. Patient has had a couple attacks since that time. Discomfort today started early in the morning. Discomfort was around 7/ 10 however is currently around 5/10. Patient did have some nausea and vomiting earlier. No fevers. No constipation or diarrhea. Discomfort is right upper quadrant and does radiate towards the back. - Related Data Home Medications Medication Instructions Recorded Confirmed Colchicine [Colcrys] 0.6 mg PO DIRECTED PRN 01/03/16 11/04/18 Indomethacin [Indocin] 50 mg PO BID PRN 01/03/16 11/04/18 Fluticasone Nasal [place] [Flonase 1 spray EA NOSTRIL DAILY 11/04/18 11/04/18 Nasal [place]] Fluticasone/Vilanterol [Breo 1 puff INHALATION RT-DAILY 11/04/18 11/04/18 Ellipta 100-25 Mcg Inhaler] Hydrochlorothiazide 12.5 mg PO BID 11/04/18 11/04/18 Losartan [Cozaar] 50 mg PO DAILY 11/04/18 11/04/18 Allergies Allergy/AdvReac Type Severity Reaction Status Date / Time morphine Allergy Rash/Hives Verified 11/04/18 10:45 Review of Systems ROS Statement: Those systems with pertinent positive or pertinent negative responses have been documented in the HPI. ROS Other: All systems not noted in ROS Statement are negative. 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), History of Any Multi-Drug Resistant Organisms: None Reported Past Surgical History: Hernia Repair Additional Past Surgical History / Comment(s): left inguinal hernia x2 Past Anesthesia/Blood Transfusion Reactions: No Reported Reaction Past Psychological History: Panic Disorder Smoking Status: Never smoker Past Alcohol Use History: Occasional Past Drug Use History: None Reported - Past Family History Mother Family Medical History: No Reported History General Exam Limitations: no limitations General appearance: alert, in no apparent distress Head exam: Present: atraumatic Eye exam: Present: normal appearance Neck exam: Present: normal inspection Respiratory exam: Present: normal lung sounds bilaterally Cardiovascular Exam: Present: regular rate, normal rhythm Expanded Peripheral pulses: 2+: Dorsalis Pedis (R), Dorsalis Pedis (L) GI/Abdominal exam: Present: soft, tenderness (Moderate right upper quadrant tenderness), normal bowel sounds. Absent: distended, guarding, rebound, rigid, pulsatile mass Extremities exam: Present: normal inspection. Absent: pedal edema, calf tenderness Neurological exam: Present: alert Psychiatric exam: Present: normal affect, normal mood Skin exam: Present: normal color Course Vital Signs 11/04/18 11/04/18 10:02 10:37 Temperature 98.1 F 98.3 F Pulse Rate 94 82 Respiratory 18 18 Rate Blood Pressure 151/92 138/97 O2 Sat by Pulse 99 97 Oximetry Medical Decision Making - Medical Decision Making Patient reevaluated and feels much better. Patient is updated on results and need for follow-up. Patient states he does have an appointment to see Dr. Campbell. - Lab Data Result diagrams: 11/04/18 11:10 11/04/18 11:10 Lab Results 11/04/18 11/04/18 11/04/18 Range/Units 11:10 11:10 11:10 WBC 9.1 (3.8-10.6) k/uL RBC 5.74 (4.30-5.90) m/uL Hgb 16.0 (13.0-17.5) gm/dL Hct 46.6 (39.0-53.0) % MCV 81.1 (80.0-100.0) fL MCH 27.8 (25.0-35.0) pg MCHC 34.3 (31.0-37.0) g/dL RDW 13.2 (11.5-15.5) % Plt Count 305 (150-450) k/uL Neutrophils % 86 % Lymphocytes % 8 % Monocytes % 4 % Eosinophils % 1 % Basophils % 0 % Neutrophils # 7.7 (1.3-7.7) k/uL Lymphocytes # 0.7 L (1.0-4.8) k/uL Monocytes # 0.4 (0-1.0) k/uL Eosinophils # 0.1 (0-0.7) k/uL Basophils # 0.0 (0-0.2) k/uL PT 9.8 (9.0-12.0) sec INR 0.9 (<1.2) APTT 23.6 (22.0-30.0) sec Sodium 141 (137-145) mmol/L Potassium 4.1 (3.5-5.1) mmol/L Chloride 105 (98-107) mmol/L Carbon Dioxide 27 (22-30) mmol/L Anion Gap 9 mmol/L BUN 11 (9-20) mg/dL Creatinine 0.94 (0.66-1.25) mg/dL Est GFR (CKD-EPI)AfAm >90 (>60 ml/min/1.73 sqM) Est GFR (CKD-EPI)NonAf >90 (>60 ml/min/1.73 sqM) Glucose 114 H (74-99) mg/dL Calcium 9.9 (8.4-10.2) mg/dL Total Bilirubin 1.2 (0.2-1.3) mg/dL AST 47 (17-59) U/L ALT 68 (21-72) U/L Alkaline Phosphatase 57 (38-126) U/L Total Protein 7.4 (6.3-8.2) g/dL Albumin 4.4 (3.5-5.0) g/dL Amylase 56 (30-110) U/L Lipase 63 (23-300) U/L Urine Color Urine Appearance (Clear) Urine pH (5.0-8.0) Ur Specific [place] (1.001-1.035) Urine Protein (Negative) Urine Glucose (UA) (Negative) Urine Ketones (Negative) Urine Blood (Negative) Urine Nitrite (Negative) Urine Bilirubin (Negative) Urine Urobilinogen (<2.0) mg/dL Ur Leukocyte Esterase (Negative) Urine RBC (0-5) /hpf Urine WBC (0-5) /hpf Amorphous Sediment (None) /hpf Urine Mucus (None) /hpf Urine Sperm (None) /hpf 11/04/18 Range/Units 11:30 WBC (3.8-10.6) k/uL RBC (4.30-5.90) m/uL Hgb (13.0-17.5) gm/dL Hct (39.0-53.0) % MCV (80.0-100.0) fL MCH (25.0-35.0) pg MCHC (31.0-37.0) g/dL RDW (11.5-15.5) % Plt Count (150-450) k/uL Neutrophils % % Lymphocytes % % Monocytes % % Eosinophils % % Basophils % % Neutrophils # (1.3-7.7) k/uL Lymphocytes # (1.0-4.8) k/uL Monocytes # (0-1.0) k/uL Eosinophils # (0-0.7) k/uL Basophils # (0-0.2) k/uL PT (9.0-12.0) sec INR (<1.2) APTT (22.0-30.0) sec Sodium (137-145) mmol/L Potassium (3.5-5.1) mmol/L Chloride (98-107) mmol/L Carbon Dioxide (22-30) mmol/L Anion Gap mmol/L BUN (9-20) mg/dL Creatinine (0.66-1.25) mg/dL Est GFR (CKD-EPI)AfAm (>60 ml/min/1.73 sqM) Est GFR (CKD-EPI)NonAf (>60 ml/min/1.73 sqM) Glucose (74-99) mg/dL Calcium (8.4-10.2) mg/dL Total Bilirubin (0.2-1.3) mg/dL AST (17-59) U/L ALT (21-72) U/L Alkaline Phosphatase (38-126) U/L Total Protein (6.3-8.2) g/dL Albumin (3.5-5.0) g/dL Amylase (30-110) U/L Lipase (23-300) U/L Urine Color Yellow Urine Appearance Cloudy (Clear) Urine pH 5.0 (5.0-8.0) Ur Specific [place] 1.024 (1.001-1.035) Urine Protein Trace H (Negative) Urine Glucose (UA) Negative (Negative) Urine Ketones Negative (Negative) Urine Blood Negative (Negative) Urine Nitrite Negative (Negative) Urine Bilirubin Negative (Negative) Urine Urobilinogen <2.0 (<2.0) mg/dL Ur Leukocyte Esterase Negative (Negative) Urine RBC 1 (0-5) /hpf Urine WBC 2 (0-5) /hpf Amorphous Sediment Rare H (None) /hpf Urine Mucus Many H (None) /hpf Urine Sperm Few H (None) /hpf - Radiology Data Radiology results: image reviewed (Abdominal x-ray reveals no acute process) Disposition Clinical Impression: Abdominal pain, Biliary colic Disposition: HOME SELF-CARE Condition: Stable Instructions: Abdominal Pain (ED), Biliary Colic (ED), Gallstones (ED) Additional Instructions: Please follow-up with Dr. Campbell as planned. Return for fever, increased pain, vomiting, worsening or changing symptoms or other concerns. Avoid high fat food. Is patient prescribed a controlled substance at d/c from ED?: No Referrals: Natalio Ojeda MD [Primary Care Provider] - 1-2 days Dipak Gay MD [Medical Doctor] - 1-2 days Time of Disposition: 12:21
[2018-11-04 11:36] LABS: Basophils % (A) 0 %; Eosinophils # (A) 0.1 k/uL (0-0.7); Eosinophils % (A) 1 %; HCT 46.6 % (39.0-53.0); Lymphocytes # (A) 0.7 k/uL (1.0-4.8); Lymphocytes % (A) 8 %; MCH 27.8 pg (25.0-35.0); MCHC 34.3 g/dL (31.0-37.0); MCV 81.1 fL (80.0-100.0); Mean Platelet Volume 7.4; Monocytes # (A) 0.4 k/uL (0-1.0); Monocytes % (A) 4 %; Neutrophils # (A) 7.7 k/uL (1.3-7.7); Neutrophils % (A) 86 %; Platelet Count 305 k/uL (150-450); RBC 5.74 m/uL (4.30-5.90); RDW 13.2 % (11.5-15.5); WBC 9.1 k/uL (3.8-10.6)
[2018-11-04 11:44] LABS: INR 0.9 (<1.2); Partial Thromboplastin Time 23.6 sec (22.0-30.0); Prothrombin Time 9.8 sec (9.0-12.0)
[2018-11-04 11:45] LABS: ALT 68 U/L (21-72); AST 47 U/L (17-59); Albumin 4.4 g/dL (3.5-5.0); Alkaline Phosphatase 57 U/L (38-126); Amylase 56 U/L (30-110); Anion Gap 9 mmol/L; Blood Urea Nitrogen 11 mg/dL (9-20); Calcium 9.9 mg/dL (8.4-10.2); Carbon Dioxide 27 mmol/L (22-30); Chloride 105 mmol/L (98-107); Glucose 114 mg/dL (74-99); Lipase 63 U/L (23-300); Potassium 4.1 mmol/L (3.5-5.1); Sodium 141 mmol/L (137-145); Total Bilirubin 1.2 mg/dL (0.2-1.3); Total Protein 7.4 g/dL (6.3-8.2)
[2018-11-04 12:06] LABS: Amorphous Sediment,Urine Rare /hpf; Appearance,Urine Cloudy (Clear); Bilirubin,Urine Negative (Negative); Blood,Urine Negative (Negative); Color,Urine Yellow; Glucose,Urine (UA) Negative (Negative); Ketones,Urine Negative (Negative); Leukocyte Esterase,Urine Negative (Negative); Mucus,Urine Many /hpf; Nitrite,Urine Negative (Negative); Protein,Urine Trace (Negative); RBC,Urine 1 /hpf (0-5); Specific Gravity,Urine 1.024 (1.001-1.035); Sperm,Urine Few /hpf; Urobilinogen,Urine <2.0 mg/dL (<2.0); WBC,Urine 2 /hpf (0-5)
--- NOTE | 2018-11-04 12:11 | XR ---
EXAMINATION TYPE: XR KUB DATE OF EXAM: 11/04/2018 COMPARISON: None INDICATION: Abdominal distention pain vomiting TECHNIQUE: Single view abdomen upright view FINDINGS: No free air is evident. No suspicious differential air-fluid levels are present. Normal colonic bowel gas is present. Psoas margins are normal. No organomegaly is present. IMPRESSION: 1. Normal abdomen
[2018-11-04 12:37] VITALS: BP 131/68; PULSE 72; TEMP 98
== END 2018-11-04 12:35 | disposition home or self-care (01) ==
LOC: EC 10:00
DX: K80.50 Calculus of bile duct without cholangitis or cholecystitis without obstruction (principal); Q24.0 Dextrocardia; I10 Essential (primary) hypertension; Z88.5 Allergy status to narcotic agent; Z79.51 Long term (current) use of inhaled steroids; Z79.899 Other long term (current) drug therapy
CPT/HCPCS: 36415; 74018; 80053; 81001; 82150; 83690; 85025; 85610; 85730; 96374; 96375; 99284

== ENCOUNTER 2018-12-16 06:11 | Day surgery (SDC) | payer BC ==
[~2018-12-16 06:11] MED LIST: DEXAMETHASONE SOD PHOSPHATE 10 MG/ML 1 ML VIAL IV ONE; HEPARIN SODIUM,PORCINE 5,000 UNIT/ML 1 ML VIAL SQ ONE; LACTATED RINGERS 1,000 ML IV SCH; MIDAZOLAM (PF) 2 MG/2 ML VIAL IV PRN; SCOPOLAMINE 1.5MG/72HR PATCH TRANSDERM ONE; ceFAZolin IN SWFI 2 GM/20 ML SYRINGE IVP ONE; fentaNYL (PF) 50 MCG/ML 2 ML AMP IV PRN
[2018-12-16] MEDS ORDERED: LIDOCAINE 1% 20 ML VIAL (10MG/ML) FOR IV START INTRADERMA ONE (06:55)
[2018-12-16] MEDS: ONDANSETRON 4 MG/2 ML VIAL IVP ONE ×2 (06:57→09:37)
[2018-12-16] MEDS ORDERED: NEOSTIGMINE 1 MG/ML 10 ML VIAL ONE (08:01)
[2018-12-16] MEDS ORDERED: KETOROLAC 30 MG/ML 1 ML VIAL ONE (08:01)
[2018-12-16] MEDS ORDERED: PROPOFOL 10 MG/ML 20 ML VIAL IV ONE (08:01)
[2018-12-16] MEDS ORDERED: ROCURONIUM BROMIDE 10 MG/ML 10 ML VIAL IV ONE (08:01)
[2018-12-16] MEDS ORDERED: GLYCOPYRROLATE 0.2 MG/ML 2 ML VIAL ONE (08:01)
[2018-12-16] MEDS ORDERED: fentaNYL (PF) 50 MCG/ML 2 ML AMP ONE (08:01)
[2018-12-16] MEDS ORDERED: MIDAZOLAM 2 MG/2 ML VIAL ONE (08:01)
[2018-12-16] MEDS ORDERED: BUPIVACAIN-EPI 0.25%-1:200,000 30 ML VIAL SQ ONE ×2 (08:37)
[2018-12-16] MEDS ORDERED: LACTATED RINGERS 1,000 ML IV ONE (09:21)
[2018-12-16] MEDS ORDERED: HYDROcodone/APAP 5-325MG 1 EACH TAB PO PRN (09:30)
[2018-12-16] MEDS ORDERED: NALOXONE 0.4 MG/ML 1 ML VIAL IV PRN (09:30)
--- NOTE | 2018-12-16 09:33 | P.OP ---
Date of Procedure: 12/16/18 Procedure(s) Performed: PREOPERATIVE DIAGNOSIS: Chronic cholecystitis POSTOPERATIVE DIAGNOSIS: Same PROCEDURE: Laparoscopic cholecystectomy SURGEON: Victor Hugo EBL: Minimal see anesthesia record ANESTHESIA: Gen. COMPLICATIONS: None OPERATIVE PROCEDURE: The patient was brought and placed on the operating room table in the supine position. The patient was placed under general anesthesia at that time. The abdomen was prepped and draped in the usual sterile fashion. A small vertical infraumbilical incision was made. The fascia was grasped with the Halle forceps. The fascia was retracted anteriorly. The Veress needle was advanced into the peritoneal cavity. The saline drop test was normal. Insufflation took place up to 15 mmHg. A 5 mm optical trocar was advanced and the peritoneal cavity. 2 additional 5 mm trochars were placed in the right upper quadrant under direct visualization. A 12 mm trocar was advanced into the epigastric incision site. The gallbladder was retracted superiorly and laterally. The gallbladder was quite long. There was a large stone present within the gallbladder that was mobile. The peritoneum overlying the infundibulum was bluntly dissected. The patient's cystic duct was visualized. The junction between the cystic duct common and hepatic duct was identified. The cystic duct was then divided after placement of 3 12 mm clips on the patient's side and one on the specimen side. The cystic artery was identified and clipped as well. A small vessel was seen along the gallbladder fossa and clipped as well. The gallbladder was then removed from the liver bed using electrocautery. The gallbladder was then removed from the epigastric trocar site with an Endo Catch bag. In order to do so the fascia was lengthened slightly with electrocautery. The gallbladder fossa was irrigated with saline. There was no evidence of any bleeding or biliary drainage seen. The fascia at the 12 millimeter site was closed using a running 0 Vicryl stitch. The trochars were then removed. The skin at all 4 sites was closed using a 4-0 Monocryl stitch. Skin glue was utilized on the incision sites. At the end of this procedure the sponge and needle counts were correct. DISPOSITION: Stable to the recovery room
[2018-12-16] MEDS ORDERED: MEPERIDINE 50 MG/ML SYRINGE IVP ONE (09:37)
[2018-12-16 09:39] VITALS: TEMP 97
[2018-12-16 10:15] VITALS: RESP 18
[2018-12-16] MEDS ORDERED: HYDROcodone/APAP 5-325MG 1 EACH TAB PO ONE (10:39)
[2018-12-16 10:58] VITALS: PULSE 79
[2018-12-16 11:16] VITALS: BP 131/98
== END 2018-12-16 11:28 | disposition home or self-care (01) ==
LOC: OR 06:11
PROVIDERS: ATTEND Surgery
DX: K80.10 Calculus of gallbladder with chronic cholecystitis without obstruction (principal); K21.9 Gastro-esophageal reflux disease without esophagitis; J45.909 Unspecified asthma, uncomplicated; Q24.0 Dextrocardia; Z79.51 Long term (current) use of inhaled steroids; Z79.899 Other long term (current) drug therapy; Z88.5 Allergy status to narcotic agent
CPT/HCPCS: 88304; 47562; J2250; J1644; J1100; J2710; J2175; J2405; J3010; J1885; J2704; J0690

== ENCOUNTER 2019-09-28 12:48 | Emergency (ER) | payer BC, OTHER ==
[2019-09-28 12:59] VITALS: TEMP 97.6
--- NOTE | 2019-09-28 14:18 | ED ---
Fall HPI - General Chief Complaint: Fall Stated Complaint: Fall, [facility] Time Seen by Provider: 09/28/19 13:32 Source: patient Mode of arrival: ambulatory - History of Present Illness Initial Comments: 34-year-old male with history of dextrocardia presenting to emergency Department for further evaluation of fall with right shoulder and hip pain. Patient states just prior to arrival he was on a two-step stepping stool attempting to fix something on the ceiling when he lost his balance falling onto his right side he states he mainly caught his fall with his right elbow and shoulder. He states his pain at the shoulder joint he states that he also has right hip pain. Patient denies any pain in the chest cavity pain with inspiration. Patient states he has s slight discomfort at the right knee, patient denies hitting his head or injury to the neck. Patient denies any back pain. Patient denies any chest pain palpitations dizziness headache nausea vomiting prior to falling. Patient states it was mechanical nature. Patient states he has been ambulatory since the fall however felt as best we come to [facility] for further evaluation. Remaining review systems negative upon arrival patient appears well the signs of acute distress - Related Data Home Medications Medication Instructions Recorded Confirmed Colchicine [Colcrys] 0.6 mg PO DIRECTED PRN 01/03/16 12/16/18 Indomethacin [Indocin] 50 mg PO BID PRN 01/03/16 12/16/18 Fluticasone Nasal [place] [Flonase 1 spray EA NOSTRIL DAILY 11/04/18 12/16/18 Nasal [place]] Fluticasone/Vilanterol [Breo 1 puff INHALATION RT-DAILY 11/04/18 12/16/18 Ellipta 100-25 Mcg Inhaler] Hydrochlorothiazide 12.5 mg PO BID 11/04/18 12/16/18 Losartan [Cozaar] 50 mg PO DAILY 11/04/18 12/16/18 Previous Rx's Medication Instructions Recorded Hydrocodone/Acetaminophen [Froid 1 tab PO Q6HR PRN 3 Days #10 tab 12/16/18 5-325] Allergies Allergy/AdvReac Type Severity Reaction Status Date / Time morphine Allergy Rash/Hives Verified 09/28/19 12:59 Review of Systems ROS Statement: Those systems with pertinent positive or pertinent negative responses have been documented in the HPI. ROS Other: All systems not noted in ROS Statement are negative. Past Medical History Past Medical History: Asthma, GERD/Reflux, Hypertension Additional Past Medical History / Comment(s): gout, migraines, dextrocardia(heart on rt side), gallstones, RUQ pain History of Any Multi-Drug Resistant Organisms: None Reported Past Surgical History: Hernia Repair Additional Past Surgical History / Comment(s): left inguinal hernia x2 Past Anesthesia/Blood Transfusion Reactions: No Reported Reaction Past Psychological History: Panic Disorder Smoking Status: Never smoker Past Alcohol Use History: Occasional Past Drug Use History: None Reported - Past Family History Mother Family Medical History: No Reported History General Exam - General Exam Comments Initial Comments: General: The patient is awake and alert, in no distress, and does not appear acutely ill. Eye: +3 mm Pupils are equal, round and reactive to light, extra-ocular movements are intact. No nystagmus. There is normal conjunctiva bilaterally. No signs of icterus. Ears, nose, mouth and throat: There are moist mucous membranes and no oral lesions. No raccoon or [place] sign Neck: The neck is supple, there is no tenderness or JVD. No midline tenderness patient the cervical thoracic or lumbar spine. Cardiovascular: There is a regular rate and rhythm. No murmur, rub or gallop is appreciated. Respiratory: Lungs are clear to auscultation, respirations are non-labored, breath sounds are equal. No wheezes, stridor, rales, or rhonchi. Gastrointestinal: Soft, non-distended, non-tender abdomen without masses or organomegaly noted. There is no rebound or guarding present. Musculoskeletal: Normal physical examination of the skin of the right shoulder right upper extremity, and right lower extremity. Equal comparison with the left. No lacerations or abrasions. Normal ROM shoulders elbows wrists knees ankles bilaterally as well as the hips. Negative logroll. Patient does complain of mild discomfort range of motion at the right shoulder and elbow as well as the right hip and knee no pain out of proportion patient is able to weight-bear. Strength 5/5 of the extremities equal comparison bilaterally. Sensation intact of the upper and lower extremity equal comparison bilaterally including the patch region. Patient is able to make the okay fingers crossed comes up and oppose the small digit and thumb no anatomical snuffbox tenderness. Radial and dorsalis pedis pulses equal bilaterally 2+. Extensor mechanism intact of the lower extremity bilaterally no laxity of the right knee noted. Neurological: A&O x 3. CN II-XII intact grossly, There are no obvious motor or sensory deficits. Coordination appears grossly intact. Speech is normal. Skin: Skin is warm and dry and no rashes or lesions are noted. Psychiatric: Cooperative, appropriate mood & affect, normal judgment. Limitations: no limitations Course Vital Signs 09/28/19 09/28/19 12:56 15:45 Temperature 97.6 F Pulse Rate 72 80 Respiratory 18 16 Rate Blood Pressure 135/89 128/69 O2 Sat by Pulse 99 100 Oximetry Medical Decision Making - Medical Decision Making 34 year male presented emergency for evaluation of fall. Areas of pain were evaluated no skin abnormalities or obvious deficits. And she states negative for acute process patient neurovascularly intact. Provided sling for comfort of right shoulder pain. Denies head injury. Patient has no other complaints are areas of injury-ambulatory and appears well emergency department. At this time I do feel patient is stable for discharge with outpatient primary care follow- up. Rice instructions were discussed the patient was discharged appearing well, case discussed with attending prior to discharge. Disposition Clinical Impression: Fall, Right elbow pain, Right shoulder pain, Right knee pain Disposition: HOME SELF-CARE Condition: Good Instructions (If sedation given, give patient instructions): R.I.C.E. Treatment (ED) Additional Instructions: Please use medication as discussed. Please follow-up with family doctor in the next 2 days. Please return to emergency room if the symptoms increase or worsen or for any other concerns. Is patient prescribed a controlled substance at d/c from ED?: No Referrals: Natalio Ojeda MD [Primary Care Provider] - 1-2 days Time of Disposition: 14:56
--- NOTE | 2019-09-28 14:30 | XR ---
EXAMINATION TYPE: XR shoulder complete RT DATE OF EXAM: 09/28/2019 CLINICAL HISTORY: Pain after fall injury. TECHNIQUE: Three views of the right shoulder are obtained. COMPARISON: None. FINDINGS: There is no acute fracture/dislocation evident in the right shoulder. The acromioclavicul ar and glenohumeral joint spaces appear within normal limits. The visualized ribs are intact and unr emarkable. IMPRESSION: There is no acute fracture or dislocation in the right shoulder.
--- NOTE | 2019-09-28 14:30 | XR ---
EXAMINATION TYPE: XR elbow complete RT DATE OF EXAM: 09/28/2019 CLINICAL HISTORY: Pain after fall injury. TECHNIQUE: Frontal, lateral and oblique images of the right elbow are obtained. COMPARISON: None FINDINGS: There is no acute fracture/dislocation evident in the right elbow. No abnormal fat pad si gns are seen. The overlying soft tissue appears unremarkable. IMPRESSION: There is no acute fracture or dislocation in the right elbow.
--- NOTE | 2019-09-28 14:31 | XR ---
EXAMINATION TYPE: XR knee complete RT DATE OF EXAM: 09/28/2019 CLINICAL HISTORY: Pain after fall injury. TECHNIQUE: Three views of the right knee are obtained. COMPARISON: None. FINDINGS: There is no acute fracture/dislocation evident in the right knee. The tri-compartment carlos nt spaces appear within normal limits. The overlying soft tissue appears unremarkable. IMPRESSION: There is no acute fracture or dislocation in the right knee.
--- NOTE | 2019-09-28 14:36 | XR ---
EXAMINATION TYPE: XR chest 2V DATE OF EXAM: 09/28/2019 COMPARISON: Chest x-ray December 10, 2017 HISTORY: Fall injury with right-sided pain. TECHNIQUE: Frontal and lateral views of the chest are obtained. FINDINGS: There is no focal air space opacity, pleural effusion, or pneumothorax seen. The cardiac silhouette size is within normal limits. Right-sided cardiac apex redemonstrated. Left-sided arch n oted. The osseous structures are intact. IMPRESSION: No acute cardiopulmonary process. No significant change from prior.
--- NOTE | 2019-09-28 14:39 | XR ---
EXAMINATION TYPE: XR Hip RT and AP Pelvis DATE OF EXAM: 09/28/2019 COMPARISON: NONE HISTORY: Fall from 2 steps with right hip pain TECHNIQUE: A single AP view of the pelvis is obtained. Two views of the right hip are obtained. FINDINGS: There is no acute fracture/dislocation evident in the pelvis. The hip and sacroiliac join ts appear symmetric and unremarkable. The overlying soft tissue appears unremarkable. Two views of right hip show no acute fracture or dislocation. No focal lytic or sclerotic lesion see n in the proximal right femur. The overlying soft tissue is unremarkable. IMPRESSION: There is no acute fracture or dislocation in the pelvis or right hip.
[2019-09-28 15:46] VITALS: BP 128/69; PULSE 80; RESP 16
== END 2019-09-28 15:40 | disposition home or self-care (01) ==
LOC: EC 12:48
DX: M25.521 Pain in right elbow (principal); M25.511 Pain in right shoulder; M25.561 Pain in right knee; J45.909 Unspecified asthma, uncomplicated; I10 Essential (primary) hypertension; Z79.899 Other long term (current) drug therapy; Z79.51 Long term (current) use of inhaled steroids; Z88.5 Allergy status to narcotic agent; W10.9XXA Fall (on) (from) unspecified stairs and steps, initial encounter; Y92.69 Other specified industrial and construction area as the place of occurrence of the external cause; Y99.0 Civilian activity done for income or pay
CPT/HCPCS: 71046; 73502; 99283

== ENCOUNTER → 2020-09-13 | Day surgery (SDC) | payer BC ==
[2020-09-11 11:53] VITALS: BMI 31.3
[~2020-09-13] MED LIST changes: +ACETAMINOPHEN TAB 500 MG TAB PO ONE; +BUPIVACAINE (PF) 0.25% 30 ML VIAL SQ ONE; +GLYCOPYRROLATE 0.2 MG/ML 2 ML VIAL ONE; +HYDROcodone/APAP 5-325MG 1 EACH TAB PO PRN; +LACTATED RINGERS 1,000 ML IV ONE; +LIDOCAINE 1% (10MG/ML) FOR IV START INTRADERMA PRN; +LIDOCAINE 1% INJ 10MG/ML (20 ML MDV) ONE; -MIDAZOLAM (PF) 2 MG/2 ML VIAL IV PRN; +MIDAZOLAM 2 MG/2 ML VIAL ONE; +NALOXONE 0.4 MG/ML 1 ML VIAL IV PRN; +NEOSTIGMINE 1 MG/ML 10 ML VIAL ONE; +ONDANSETRON 4 MG/2 ML VIAL ONE; +PROPOFOL 10 MG/ML 20 ML VIAL IV ONE; +ROCURONIUM 10 MG/ML (10 ML VIAL) IV ONE; -SCOPOLAMINE 1.5MG/72HR PATCH TRANSDERM ONE; +SUCCINYLCHOLINE CHLORIDE 100 MG/5 ML SYR IV ONE; -ceFAZolin IN SWFI 2 GM/20 ML SYRINGE IVP ONE; +ePHEDrine SULFATE/0.9% NACL/PF 50 MG/5 ML SYRINGE IV ONE; -fentaNYL (PF) 50 MCG/ML 2 ML AMP IV PRN; +fentaNYL (PF) 50 MCG/ML 2 ML AMP ONE
--- NOTE | 2020-09-13 12:58 | P.GSHP ---
History of Present Illness H&P Date: 09/13/20 Chief Complaint: incisional hernia 34-year-old male underwent cholecystectomy laparoscopically early 2018. Patient was found have a large gallstone that required a larger extraction site incision. Postoperatively he has noticed gradual increase in swelling at that site. Mild discomfort at times. Past Medical History Past Medical History: Asthma, GERD/Reflux, Hypertension, Sleep Apnea/CPAP/BIPAP Additional Past Medical History / Comment(s): gout, migraines, dextrocardia (heart on rt side); not using cpap; incisional hernia currently History of Any Multi-Drug Resistant Organisms: None Reported Past Surgical History: Cholecystectomy, Hernia Repair Additional Past Surgical History / Comment(s): left inguinal hernia x2 Past Anesthesia/Blood Transfusion Reactions: No Reported Reaction Smoking Status: Never smoker - Past Family History Mother Family Medical History: No Reported History Medications and Allergies Home Medications Medication Instructions Recorded Confirmed Type Colchicine [Colcrys] 0.6 mg PO DAILY 01/03/16 09/13/20 History Indomethacin [Indocin] 50 mg PO BID PRN 01/03/16 09/13/20 History Fluticasone/Vilanterol [Breo 1 puff INHALATION RT-DAILY 11/04/18 09/13/20 History Ellipta 100-25 Mcg Inhaler] Hydrochlorothiazide 25 mg PO DAILY 11/04/18 09/13/20 History [hydroCHLOROthiazide] Losartan [Cozaar] 50 mg PO DAILY 11/04/18 09/13/20 History Albuterol Inhaler [Ventolin Hfa 1 - 2 puff INHALATION RT-QID PRN 09/11/20 09/13/20 History Inhaler] Allopurinol [Zyloprim] 300 mg PO DAILY 09/11/20 09/13/20 History Esomeprazole Magnesium [NexIUM] 40 mg PO DAILY 09/11/20 09/13/20 History Allergies Allergy/AdvReac Type Severity Reaction Status Date / Time morphine Allergy Rash/Hives Verified 09/13/20 10:58 Surgical - Exam Vital Signs Temp Pulse Resp BP Pulse Ox 97.3 F L 80 16 124/80 98 09/13/20 10:41 09/13/20 10:41 09/13/20 10:41 09/13/20 10:41 09/13/20 10:41 Physical exam: General: Well-developed, well-nourished HEENT: Normocephalic, sclerae nonicteric Abdomen: Nontender, nondistended, reducible incisional hernia at epigastric extraction site Extremities: No edema Neuro: Alert and oriented Assessment and Plan (1) Incisional hernia Narrative/Plan: 34-year-old male with reducible incisional hernia. We'll proceed with operative repair with mesh at this time. Risks of bleeding, infection, recurrence, bladder and bowel injury, numbness, nerve injury were discussed with the patient. The patient understands and wishes to proceed. Current Visit: Yes Status: Acute Code(s): K43.2 - INCISIONAL HERNIA WITHOUT OBSTRUCTION OR GANGRENE SNOMED Code(s): 532902965
[2020-09-13 13:58] VITALS: TEMP 98
--- NOTE | 2020-09-13 14:19 | P.OP ---
Date of Procedure: 09/13/20 Procedure(s) Performed: PREOPERATIVE DIAGNOSIS: Reducible incisional hernia POSTOPERATIVE DIAGNOSIS: Same PROCEDURE: Reducible incisional hernia repair with mesh SURGEON: Victor Hugo EBL: Minimal ANESTHESIA: Gen. COMPLICATIONS: None OPERATIVE PROCEDURE: Patient placed on the operating table in the supine position. Abdomen was prepped and draped in usual sterile fashion. The previous epigastric incision was re-incised. Dissection through the subcutaneous tissues took place using electrocautery. A small to moderate sized hernia was identified. The hernia sac was carefully dissected down to the level of the fascia where it was excised reduced back into the preperitoneal space. The size of this fascial defect was 2 x 1 cm. The 4.3 cm ventral ex mesh was placed in the preperitoneal space and sutured to the fascia using trans-fascial 0 Ethibond sutures. The defect was then closed horizontally using a vest over pants technique with interrupted 0 Ethibond mattress sutures. The folding edge was tacked down using 0 Ethibond sutures as well. The subcutaneous tissues were closed using 3-0 Vicryl sutures and the skin using 4-0 Monocryl sutures. Skin glue and sterile dressings were then applied. DISPOSITION: Stable to recovery room
[2020-09-13 14:22] VITALS: RESP 16
[2020-09-13 14:57] VITALS: BP 131/86; PULSE 78
== END ==
LOC: OR 10:12
PROVIDERS: ATTEND Surgery
DX: K43.2 Incisional hernia without obstruction or gangrene (principal); K21.9 Gastro-esophageal reflux disease without esophagitis; I10 Essential (primary) hypertension; M10.9 Gout, unspecified; F41.0 Panic disorder [episodic paroxysmal anxiety]; J45.909 Unspecified asthma, uncomplicated; Q24.0 Dextrocardia; G43.909 Migraine, unspecified, not intractable, without status migrainosus; G47.33 Obstructive sleep apnea (adult) (pediatric); Z90.49 Acquired absence of other specified parts of digestive tract; Z87.19 Personal history of other diseases of the digestive system; Z98.890 Other specified postprocedural states; Z83.3 Family history of diabetes mellitus; Z79.899 Other long term (current) drug therapy; Z82.49 Family history of ischemic heart disease and other diseases of the circulatory system; Z79.51 Long term (current) use of inhaled steroids; Z88.5 Allergy status to narcotic agent; Z99.89 Dependence on other enabling machines and devices
CPT/HCPCS: 93005; 49560; 49568; C1781; J2250; J1644; J1100; J2710; J0690; J2405; J2001; J3010; J0330; J2704

== ENCOUNTER → 2020-10-11 | Outpatient (CLI) | payer BC ==
--- NOTE | 2020-10-11 11:16 | US ---
EXAMINATION TYPE: US scrotum with doppler. Grayscale and color Doppler Duplex imaging performed of t he scrotum. DATE OF EXAM: 10/11/2020 COMPARISON: NONE CLINICAL HISTORY: N50.89 Other specified disorders of male genital o. Patient states history of left spermatocele. Lump right testicle EXAM MEASUREMENTS: TESTICLES: Right Testicle: 5.2 x 2.1 x 3.9 cm Left Testicle: 5.0 x 2.3 x 3.6 cm EPIDIDYMIS HEAD: Right Epididymis: 1.4 cm Left Epididymis: 1.2 cm Doppler performed to assess for testicular vascularity; good bilateral color flow and waveforms are s een. There is no evidence of testicular torsion. Presence of hydroceles: small fluid collection lateral to right testicle = 2.7cm and medial to left testicle = 3.4cm Presence of varicoceles: no *cystic area left epididymis = 0.7 x 0.6 x 0.7cm IMPRESSION: 1. Left side spermatocele or epididymal cyst. 2. No acute abnormality.
== END | disposition home or self-care (01) ==
LOC: RADUSWWP 07:29
PROVIDERS: ATTEND Family Medicine
DX: N50.89 Other specified disorders of the male genital organs (principal)
CPT/HCPCS: 76870; 93975